=== PATIENT | female | born 1990 | race Two or more races ===

== ENCOUNTER 2022-02-15 02:03 | Emergency (ER) | payer OTHER ==
[2022-02-15] MEDS ORDERED: DIPHTH,PERTUSS(ACELL),TET 0.5 ML DISP.SYRIN IM ONE (02:32)
[2022-02-15] MEDS ORDERED: TETANUS AND DIPHTHERIA TOXOID 0.5 ML DISP.SYRIN IM ONE (02:33)
[2022-02-15 02:37] VITALS: BP 126/80; PULSE 89; RESP 18; TEMP 98.2; BMI 26.6
== END 2022-02-15 03:02 | disposition home or self-care (01) ==
LOC: FER 02:03
PROC: 3E0234Z Introduction of Serum, Toxoid and Vaccine into Muscle, Percutaneous Approach (ICD-10-PCS; principal; 2022-02-15)
DX: S61.211A Laceration without foreign body of left index finger without damage to nail, initial encounter (principal); W26.0XXA Contact with knife, initial encounter
CPT/HCPCS: 90471; 90715; 99282-25